=== PATIENT | male | born 1995 | race Two or more races ===

== ENCOUNTER 2021-01-14 08:23 | Emergency (ER) | payer BC, OTHER ==
[~2021-01-14] VITALS: Ht 172.7 cm; Wt 75.1 kg
[2021-01-14 08:31] VITALS: BP 138/90
--- NOTE | 2021-01-14 08:52 | NUR ---
PT PRESENTS TO ED WITH C/O DRY/SORE THROAT AND BLOOD IN MUCOUS SINCE HEAT WAVE STARTED (APPROX 1 WEEK). PT A&O, RESPS EVEN AND UNLABORED, VSS, NADN.
--- NOTE | 2021-01-14 09:37 | NUR ---
PT EDUCATED ON DC, VERBALIZED UNDERSTANDING. AMBULATORY TO DISCHARGE DESK WITH STEADY GAIT
== END 2021-01-14 09:39 | disposition home or self-care (01) ==
LOC: ED 08:44
DX: J30.2 Other seasonal allergic rhinitis (principal)
CPT/HCPCS: 99283